=== PATIENT | male | born 1950 | race Caucasian/White ===

== ENCOUNTER 2017-08-06 18:27 | Emergency (ER) | payer MEDICAID ==
[~2017-08-06] VITALS: Ht 170.2 cm; Wt 84.5 kg
[~2017-08-06 18:27] MED LIST: AUG875 PO
[2017-08-06 18:43] VITALS: Ht 170.2 cm; Wt 84.5 kg
[2017-08-06] MEDS ORDERED: OXYMETAZOLINE 0.05% 15 ML NAS SPRAY NASAL ONE (19:30)
--- NOTE | 2017-08-06 20:09 | ERD ---
ER Documentation Chief Complaint Chief Complaint on and off nosebleeding x 3 days HPI HIV +67-year-old male who is otherwise healthy presents with a chief complaint of nose bleeding at 2-3 days. As not relieved with pressure. No new medications and denies any anticoagulant use. No aspirin use. Denies cough, headache, meningismus, fever, chills, recent hospitalization. Similar symptoms 2 years ago. Has re-bled with straining while using the bathroom. No other aggravating factors. No alleviating factors. Patient has no other complaints and describes no other associated manifestations. Nursing notes have been reviewed and are consistent with history given. ROS All systems reviewed and are negative except as per history of present illness. Medications Home Meds Active Scripts Amoxicillin* (Amoxicillin*) 500 Mg Cap, 500 MG PO TID for 5 Days, CAP Prov:ESEQUIEL JAY PA-C 08/06/17 Amoxicillin-Clavulanate K* (Augmentin*) 875 Mg Tab, 875 MG PO BID for 7 Days, TAB Prov:VIJAY BROWNLEE PA-C 10/03/15 Allergies Allergies: Coded Allergies: lisinopril (Verified Allergy, Mild, Cough, 10/03/15) PMhx/Soc History of Surgery: Yes (prostate sx) Anesthesia Reaction: No Hx Neurological Disorder: No Hx Respiratory Disorders: No Hx Cardiac Disorders: Yes (htn) Hx Psychiatric Problems: No Hx Miscellaneous Medical Probl: Yes (HIV+) Hx Alcohol Use: No Hx Substance Use: No Hx Tobacco Use: No Smoking Status: Never smoker Physical Exam Vitals Vital Signs Date Time Temp Pulse Resp B/P Pulse Ox O2 Delivery O2 Flow Rate FiO2 08/06/17 18:43 99.4 82 20 175/90 97 Physical Exam Const: [] Head: Atraumatic Eyes: Normal Conjunctiva ENT: Normal External Ears, Nose and Mouth. Neck: Full range of motion..~ No meningismus. Resp: Clear to auscultation bilaterally Cardio: Regular rate and rhythm, no murmurs Abd: Soft, non tender, non distended. Normal bowel sounds Skin: No petechiae or rashes Back: No midline or flank tenderness Ext: No cyanosis, or edema Neur: Awake and alert Psych: Normal Mood and Affect Result Diagram: 08/06/172007 Results 24 hrs Laboratory Tests Test 08/06/17 20:08 White Blood Count 5.210^3/ul Red Blood Count 4.0510^6/ul Hemoglobin 12.7g/dl Hematocrit 39.3% Mean Corpuscular Volume 97.0fl Mean Corpuscular Hemoglobin 31.4pg Mean Corpuscular Hemoglobin Concent 32.3g/dl Red Cell Distribution Width 12.8% Platelet Count 49101^3/UL Mean Platelet Volume 10.6fl Neutrophils % 56.4% Lymphocytes % 32.3% Monocytes % 8.4% Eosinophils % 1.9% Basophils % 0.8% Nucleated Red Blood Cells % 0.0/100WBC Neutrophils # 3.010^3/ul Lymphocytes # 1.710^3/ul Monocytes # 0.410^3/ul Eosinophils # 0.110^3/ul Basophils # 0.010^3/ul Nucleated Red Blood Cells # 0.010^3/ul Prothrombin Time 12.7Sec Prothrombin Time Ratio 1.0 INR International Normalized Ratio 0.95 Activated Partial Thromboplast Time 27.8Sec Current Medications Medications (Trade) Dose Ordered Sig/Ignacia Route PRN Reason Start Time Stop Time Status Last Admin Dose Admin Oxymetazoline HCl (Afrin [place]) 2 spray ONCE ONCE NASAL 08/06/17 19:30 08/06/17 19:31 DC 08/06/17 19:52 Procedures/MDM 67-year-old male who is HIV positive otherwise healthy and on no anticoagulants or antiplatelets presents with a chief complaint of nose bleeding. Pressure has not resolved bleeding. Afrin was given. The bleeding continued. No source of bleeding identified. No bleeding in the oropharynx. I have little suspicion for posterior bleed. Presented the case to my attending Dr. Cox who has suggested CBC, PT, and PTT. Results showed the following: WITH thethe RBC 4.05. Hgb 12.7. HCT 39.3. PT/PTT within normal limits. 4.5 cm anterior Rhino Rocket was placed without complication. Cessation of bleeding. Reevaluation showed no bleeding in the posterior pharynx. I have no suspicion for posterior bleed, intracranial pathology, acute severe blood disorder or anemia. I have spoke with the patient regarding their condition and future management. They have verbally responded that they understand their status and treatment plan. The patients vitals are stable, and their current condition is appropriate for discharge. The patient will be given discharge instructions with return precautions. Discharge medications: Amoxicillin Departure Diagnosis: Primary Impression: Epistaxis Condition: Stable Additional Instructions: Follow up in 24 hours. Return the the emergency department immediately if symptoms worsen or change. If you have any questions regarding medications, ask your pharmacist or us before you leave. If any adverse reactions occur while taking your medications, discontinue the treatment and return to the emergency department immediately. Take your medications as directed, and complete the entire course of treatment. ESEQUIEL JAY PA-C Aug 06, 2017 20:09
[2017-08-06] MEDS ORDERED: AMOX500C2 PO (21:21)
== END 2017-08-06 21:41 | disposition home or self-care (01) ==
LOC: FTE 18:27
DX: R04.0 Epistaxis (principal); I10 Essential (primary) hypertension
CPT/HCPCS: 30903; 85025; 85610; 85730; Z7502; Z7610

== ENCOUNTER 2017-08-08 12:06 | Emergency (ER) | payer MEDICAID ==
[~2017-08-08] VITALS: Ht 170.2 cm; Wt 82.6 kg
[~2017-08-08 12:06] MED LIST changes: +AMOX500C2 PO
[2017-08-08 12:22] VITALS: Ht 170.2 cm; Wt 82.6 kg
[2017-08-08] MEDS ORDERED: OXYM15SP34 NASAL (12:34)
--- NOTE | 2017-08-08 12:41 | ERD ---
ER Documentation Chief Complaint Chief Complaint rhino rocket in place; here for a recheck HPI 67-year-old male presents with a recheck for Rhino Rocket that was placed to the left nerve II days ago. The patient states that he take any blood thinners , did not experience any trauma, had spontaneous bleeding. After Afrin application and he continued to have bleeding therefore Rhino Rocket was placed. He has not had any continued epistaxis. He is asymptomatic and has no medical complaints at this time. ROS All systems reviewed and are negative except as per history of present illness. Medications Home Meds Active Scripts Oxymetazoline Hcl* (Afrin [place]*) 0.05% - 15 Ml [place], 2 SPRAYS NASAL BID, #1 EA to each nostril Prov:JACQUES HARKINS PA-C 08/08/17 Amoxicillin* (Amoxicillin*) 500 Mg Cap, 500 MG PO TID for 5 Days, CAP Prov:ESEQUIEL JAY PA-C 08/06/17 Amoxicillin-Clavulanate K* (Augmentin*) 875 Mg Tab, 875 MG PO BID for 7 Days, TAB Prov:VIJAY BROWNLEE PA-C 10/03/15 Allergies Allergies: Coded Allergies: lisinopril (Verified Allergy, Mild, Cough, 10/03/15) PMhx/Soc History of Surgery: Yes (prostate sx) Anesthesia Reaction: No Hx Neurological Disorder: No Hx Respiratory Disorders: No Hx Cardiac Disorders: Yes (htn) Hx Psychiatric Problems: No Hx Miscellaneous Medical Probl: Yes (HIV+) Hx Alcohol Use: No Hx Substance Use: No Hx Tobacco Use: No Smoking Status: Never smoker Physical Exam Vitals Vital Signs Date Time Temp Pulse Resp B/P Pulse Ox O2 Delivery O2 Flow Rate FiO2 08/08/17 12:22 99.0 83 16 161/88 96 Physical Exam General: Well-developed, well-nourished. The patient appears in no acute distress. HEENT: Head is normocephalic, atraumatic. No scleral icterus. Rhino Rocket secured in the left naris. After removal, there is a patent, no bleeding. Neck: Supple. Nontender. Lungs: Clear to auscultation. Normal air movement. Heart: Regular rate and rhythm. S1 and S2 are normal. No murmurs, gallops, or rubs. Abdomen: Nondistended. Extremities: No clubbing or cyanosis. Moving extremities x 4. No weakness. Neurologic: Alert and oriented 3. No focal deficits. Normal speech and gait. Skin: Normal turgor. No rash or lesions. Procedures/MDM MDM: 67-year-old male comes in for Rhino Rocket removal from the left nares. The patient at this time is asymptomatic, the Rhino Rocket was removed without any complications, there is no further bleeding. Patient's blood pressure was elevated (>120/80) but appears stable without evidence of hypertension emergency or urgency. The patient was counseled about the risks of hypertension and urged to pursue outpatient monitoring and therapy within a week with their primary care physician. The case was reviewed and discussed with Dr. Clemens who agrees with the plan of care including labs, treatment, and advanced imaging as appropriate. Departure Diagnosis: Primary Impression: Hospital discharge follow-up Condition: Good Patient Instructions: Epistaxis (Adult) JACQUES HARKINS PA-C Aug 08, 2017 12:40
== END 2017-08-08 12:56 | disposition home or self-care (01) ==
LOC: FTE 12:06
DX: Z48.89 Encounter for other specified surgical aftercare (principal); I10 Essential (primary) hypertension
CPT/HCPCS: 99283